=== PATIENT | male | born 1985 | race Caucasian/White ===

== ENCOUNTER 2016-08-29 05:29 | Emergency (ER) | payer OTHER ==
[~2016-08-29] VITALS: Ht 165.1 cm; Wt 103.0 kg
[2016-08-29 05:48] VITALS: Ht 165.1 cm; Wt 103.0 kg
[2016-08-29] MEDS ORDERED: METR500T PO (06:18)
[2016-08-29] MEDS ORDERED: CIPR500T4 PO (06:18)
[2016-08-29] MEDS ORDERED: TRAM50TA2 PO (06:18)
--- NOTE | 2016-08-29 06:22 | ERD ---
ER Documentation Chief Complaint Date/Time DATE: 08/29/16 TIME: 06:19 Chief Complaint swelling/pain rectal area x 2 days HPI 31 yo male comes in with a recurrent left perianal abscess that has been reoccuring, and painful for 1 week. Said it has spontaneously drained this morning, large amount of pus was followed. He has had localized pain on the left buttock, does not go to the rectum, he has no difficulty with defecation. He has not had any fevers or chills. Patient denies history of diabetes. Surgery was done with Dr Stein previously. ROS All systems reviewed and are negative except as per history of present illness. Medications Home Meds Active Scripts Tramadol HCl (Tramadol HCl) 50 Mg Tablet, 50 MG PO Q4 Y for PAIN, #12 TAB Prov:LAURA DIETZ PA-C 08/29/16 Ciprofloxacin Hcl* (Ciprofloxacin Hcl*) 500 Mg Tablet, 500 MG PO BID for 7 Days , TAB Prov:LAURA DIETZ PA-C 08/29/16 Metronidazole* (Flagyl*) 500 Mg Tablet, 500 MG PO TID for 7 Days, TAB Prov:LAURA DIETZ PA-C 08/29/16 Allergies Allergies: Coded Allergies: No Known Allergy (Unverified , 08/29/16) PMhx/Soc History of Surgery: Yes (CARPAL TUNNEL ERROL WRIST) Anesthesia Reaction: No Hx Neurological Disorder: No Hx Respiratory Disorders: No Hx Cardiac Disorders: No Hx Psychiatric Problems: No Hx Miscellaneous Medical Probl: No Hx Alcohol Use: No Hx Substance Use: Yes (MARIJUANA DAILY) Hx Tobacco Use: No Smoking Status: Never smoker Physical Exam Vitals Vital Signs Date Time Temp Pulse Resp B/P Pulse Ox O2 Delivery O2 Flow Rate FiO2 08/29/16 05:48 97.0 102 20 156/95 97 Physical Exam General: Well-developed, well-nourished. The patient appears in no acute distress. HEENT: Head is normocephalic, atraumatic. No scleral icterus. Neck: Supple. Nontender. Lungs: Clear to auscultation. Normal air movement. Heart: Regular rate and rhythm. S1 and S2 are normal. No murmurs, gallops, or rubs. Abdomen: Soft, nontender, nondistended. Bowel sounds are normoactive. Rectum: Normal tone, left inferior buttock approximately 5 cm away from the rectum shows a 1 cm opening, with a 2 x 3 area of induration from. There is no recurring drainage to the area. There is local tenderness only. Extremities: No clubbing or cyanosis. Normal pulses. Moving extremities x 4. No weakness. Neurologic: Alert and oriented 3. No focal deficits. Skin: Normal turgor. No rash or lesions. Procedures/MDM 31-year-old male comes in with a spontaneously draining perianal abscess. Physical examination shows a localized abscess, there is no tracking that I can appreciate, the rectum is not affected at this time. Given the location the patient will be given Cipro and Flagyl for coverage, was advised to do warm compresses. This appears to be a recurring problem, he was given information to surgeon, Dr. Stein. He is to follow-up with them this week. At this time is afebrile, does not show any signs of deep space infection, sepsis, does not require IV antibiotics. Departure Diagnosis: Primary Impression: Perianal abscess Condition: Good Patient Instructions: Brooke-Anal Abscess, Abx Only Referrals: Rosalia STEIN Additional Instructions: GENER[employer]ER: YOU HAVE A MEDICAL CONDITION WHICH REQUIRES YOU TO SEE A SPECIALIST WITHIN THE NEXT 1-2 DAYS. PLEASE FOLLOW UP WITH YOUR PRIMARY PHYSICIAN FOR REFFERAL.IF YOU DO NOT HAVE A PRIMARY CARE PHYSICIAN AND/OR YOU CAN NOT AFFORD TO SEE A PHYSICIAN THE FOLLOWING RESOURCES HAVE BEEN SUPPLIED TO YOU. IT IS YOUR RESPONSIBILITY TO BE SEEN BY THE SPECIALIST LAURA DIETZ PA-C Aug 29, 2016 06:22
[2016-08-29 06:35] VITALS: BP 140/98; PULSE 96; RESP 18; TEMP 98.7
== END 2016-08-29 06:36 | disposition home or self-care (01) ==
LOC: FTE 05:29
DX: K61.0 Anal abscess (principal)
CPT/HCPCS: 99284